=== PATIENT | male | born 1950 | race Caucasian/White ===

== ENCOUNTER 2021-12-06 12:27 | Inpatient (IN) | payer MEDICARE, OTHER ==
[2021-12-06 13:32] VITALS: BMI 27.3
[2021-12-06 15:27] LABS: BASO % 0.1 % (0-2.0); EOS % 0.1 % (0-4.5); HEMATOCRIT 40.6 % (35.4-49); MCH 28.4 pg (25.7-33.7); MEAN CELL VOLUME 88.8 fl (80-96); MEAN PLT VOLUME 8.3 fl (7.5-11.1); MONO % 6.8 % (3.8-10.2); PLATELET COUNT 404 10^3/uL (134-434); RBC 4.56 M/mm3 (4.00-5.60); RDW 15.7 % (11.9-15.9); WHITE BLOOD COUNT 20.1 K/mm3 (4.0-10.0)
[2021-12-06 15:37] LABS: INR 3.49 (0.83-1.09); PROTHROMBIN TIME (PATIENT) 40.6 SEC (9.7-13.0)
[2021-12-06 15:40] LABS: ACTIVATED PTT 39.1 SECONDS (25.2-36.5)
[2021-12-06 15:54] LABS: CHLORIDE 110 mmol/L (98-107); SODIUM 144 mmol/L (136-145)
[2021-12-06 15:58] LABS: ALBUMIN 2.2 g/dl (3.4-5.0); ANION GAP 8 MMOL/L (8-16); BLOOD UREA NITROGEN 28.5 mg/dL (7-18); CALCIUM 9.2 mg/dL (8.5-10.1); CO2 25 mmol/L (21-32); GLUCOSE,RANDOM 105 mg/dL (74-106)
[2021-12-06 16:00] LABS: SGOT/AST 23 U/L (15-37); SGPT/ALT 9 U/L (13-61)
[2021-12-06 16:02] LABS: CREATININE 0.9 mg/dL (0.55-1.3)
[2021-12-06 16:03] LABS: BILIRUBIN,TOTAL 1.4 mg/dL (0.2-1); TOT PROT 6.5 g/dl (6.4-8.2)
[2021-12-06 16:04] LABS: ALK PHOS 154 U/L (45-117)
[2021-12-06] MEDS ORDERED: ACETAMINOPHEN INJECTION 100 ML IVPB ONE (17:34)
[2021-12-06] MEDS ORDERED: PIPERACILLIN/TAZOB 4.5 GM 4.5 GM/100 ML BAG IVPB ONE (17:34)
[2021-12-06] MEDS ORDERED: VANCOMYCIN 1 GRAM (PRE-DOCKED) 1,000 MG/250 ML BAG IVPB ONE (17:34)
[2021-12-06] MEDS ORDERED: PIPERACILLIN/TAZOB 4.5 GM 4.5 GM in DEXTROSE 5%-WATER 100 ML IVPB ONE (17:37)
[2021-12-06] MEDS ORDERED: VANCOMYCIN 1,000 MG in DEXTROSE 5%-WATER - 250 ML IVPB ONE (17:37)
[2021-12-06] MEDS ORDERED: DEXAMETHASONE SOD PHOSPHATE 10 MG/1 ML VIAL IVPUSH ONE (17:40)
[2021-12-06 17:41] LABS: ANISOCYTOSIS 2+; MACROCYTOSIS 0; OVALOCYTE 1+; PLATELET ESTIMATE NORMAL; TARGET CELLS 1+
[2021-12-06] MEDS ORDERED: ACETAMINOPHEN 1000 MG/100 ML BAG IVPB ONE (17:55)
[2021-12-06 19:58] LABS: ALLENS TEST POSITIVE; ARTERIAL BLD GAS O2 SATURATION 90.1 % (95-98); ARTERIAL BLOOD GAS BASE EXCESS 1.2 mmol/L (-2-2); ARTERIAL BLOOD GAS pH 7.448 (7.350-7.450)
[2021-12-06 20:01] LABS: EPI CELLS 9 /uL (0-25.1); HYALINE CASTS 6 /uL (0-3.1); PH,URINE 5.5 (5.0-8.0); URINE APPEARANCE CLOUDY; URINE BILIRUBIN 2+ (NEGATIVE); URINE COLOR DK YELLOW; URINE GLUCOSE (UA) NEGATIVE (NEGATIVE); URINE KETONE NEGATIVE (NEGATIVE); URINE LEUK ESTERASE 1+ (NEGATIVE); URINE NITRITE POSITIVE (NEGATIVE); URINE PROTEIN TRACE (NEGATIVE); URINE WBC 37 /uL (0-25.8)
[2021-12-06 22:22] LABS: URINE BACTERIA 2 /uL (0-1359); URINE RBC 74 /uL (0-23.9)
[2021-12-07] MEDS ORDERED: PIPERACILLIN/TAZOB 4.5 GM 4.5 GM in DEXTROSE 5%-WATER 100 ML IVPB SCH ×2 (09:00→09:30)
[2021-12-07 09:09] LABS: HEMATOCRIT 39.2 % (35.4-49); HEMOGLOBIN 12.7 GM/dL (11.7-16.9); MCH 28.6 pg (25.7-33.7); MCHC 32.3 g/dl (32.0-35.9); MEAN CELL VOLUME 88.7 fl (80-96); MEAN PLT VOLUME 8.9 fl (7.5-11.1); PLATELET COUNT 428 10^3/uL (134-434); RBC 4.42 M/mm3 (4.00-5.60); RDW 15.6 % (11.9-15.9); WHITE BLOOD COUNT 26.8 K/mm3 (4.0-10.0)
[2021-12-07] MEDS ORDERED: VANCOMYCIN/WATER BAGS 1,250 MG/250 ML BAG IVPB SCH ×2 (09:30→10:00)
[2021-12-07 09:53] LABS: CHLORIDE 107 mmol/L (98-107); SODIUM 141 mmol/L (136-145)
[2021-12-07 09:54] LABS: ANISOCYTOSIS 0; HELMET CELLS 0; HOWELL-JOLLY BODIES 0; MACROCYTOSIS 0; OVALOCYTE 0; PLATELET ESTIMATE NORMAL; ROULEAU 0; SICKELED CELLS 0; TARGET CELLS 0; TEAR DROP CELLS 0; TOXIC GRANULATION 0
[2021-12-07 10:01] LABS: CREATININE 0.9 mg/dL (0.55-1.3); SGPT/ALT 11 U/L (13-61)
[2021-12-07 10:03] LABS: BILIRUBIN,TOTAL 1.3 mg/dL (0.2-1)
[2021-12-07 10:04] LABS: CALCIUM 9.4 mg/dL (8.5-10.1); GLUCOSE,RANDOM 157 mg/dL (74-106)
[2021-12-07 10:05] LABS: ALBUMIN 2.1 g/dl (3.4-5.0); BLOOD UREA NITROGEN 36.7 mg/dL (7-18); MAGNESIUM 2.9 mg/dL (1.8-2.4)
[2021-12-07 10:08] LABS: ANION GAP 10 MMOL/L (8-16); CO2 24 mmol/L (21-32); PHOSPHOROUS 4.1 mg/dL (2.5-4.9); SGOT/AST 24 U/L (15-37); TOT PROT 6.6 g/dl (6.4-8.2)
[2021-12-07 10:09] LABS: ALK PHOS 176 U/L (45-117)
[2021-12-07] MEDS ORDERED: PIPERACILLIN/TAZOB 4.5 GM 4.5 GM/100 ML BAG IVPB ONE (12:23)
[2021-12-07] MEDS ORDERED: PIPERACILLIN/TAZOB 3.375 GM 3.375 GM/50 ML BAG IVPB ONE (19:28)
[2021-12-07] MEDS ORDERED: D5-1/2NS+20 MEQ KCL - 20 MEQ/1,000 ML INFUS.BAG IV SCH (19:45)
[2021-12-07] MEDS: PIPERACILLIN/TAZOB 3.375 GM 3.375 GM in DEXTROSE 5%-WATER - 50 ML IVPB SCH (20:09)
[2021-12-07] MEDS: D5-1/2NS+20 MEQ KCL - 20 MEQ/1,000 ML INFUS.BAG IV SCH (20:09)
[2021-12-07] MEDS: ALBUTEROL SO4 HFA INHALER IH SCH (20:10)
[2021-12-08] MEDS ORDERED: PIPERACILLIN/TAZOBACTAM 3.375 GM VIAL IVPB ONE ×3 (00:06→17:26)
[2021-12-08] MEDS ORDERED: DEXTROSE 5%-WATER - 50 ML IVPB ONE ×3 (00:06→17:27)
[2021-12-08] MEDS: methylPREDNISolone NA SUCC 40 MG/1 ML VIAL IVPUSH SCH ×3 (00:11→21:22)
[2021-12-08] MEDS: PIPERACILLIN/TAZOB 3.375 GM 3.375 GM in DEXTROSE 5%-WATER - 50 ML IVPB SCH ×3 (01:30→17:40)
[2021-12-08] MEDS: ALBUTEROL SO4 HFA INHALER IH SCH ×2 (03:35→21:23)
[2021-12-08 08:48] LABS: HEMATOCRIT 36.7 % (35.4-49); HEMOGLOBIN 11.7 GM/dL (11.7-16.9); MCH 28.2 pg (25.7-33.7); MCHC 31.9 g/dl (32.0-35.9); MEAN CELL VOLUME 88.4 fl (80-96); MEAN PLT VOLUME 8.9 fl (7.5-11.1); PLATELET COUNT 420 10^3/uL (134-434); RBC 4.15 M/mm3 (4.00-5.60); RDW 15.9 % (11.9-15.9); WHITE BLOOD COUNT 25.6 K/mm3 (4.0-10.0)
[2021-12-08 09:15] LABS: BLOOD UREA NITROGEN 37.7 mg/dL (7-18); CALCIUM 8.9 mg/dL (8.5-10.1)
[2021-12-08 09:19] LABS: CREATININE 1.1 mg/dL (0.55-1.3)
[2021-12-08 09:20] LABS: BILIRUBIN,TOTAL 1.1 mg/dL (0.2-1); TOT PROT 6.4 g/dl (6.4-8.2)
[2021-12-08 11:00] LABS: ANISOCYTOSIS 1+; MACROCYTOSIS 2+; OVALOCYTE 1+; PLATELET ESTIMATE NORMAL; TOXIC GRANULATION 2+
[2021-12-08] MEDS: PANTOPRAZOLE SODIUM 40 MG VIAL IVPUSH SCH (14:20)
[2021-12-08] MEDS: ENOXAPARIN NA (PORCINE) 40 MG/0.4 ML DISP.SYRIN SQ SCH (14:21)
[2021-12-08] MEDS: D5-1/2NS+20 MEQ KCL - 20 MEQ/1,000 ML INFUS.BAG IV SCH (14:59)
[2021-12-09] MEDS ORDERED: PIPERACILLIN/TAZOBACTAM 3.375 GM VIAL IVPB ONE ×3 (03:44→17:33)
[2021-12-09] MEDS ORDERED: DEXTROSE 5%-WATER - 50 ML IVPB ONE ×3 (03:45→17:33)
[2021-12-09] MEDS: ALBUTEROL SO4 HFA INHALER IH SCH (03:55)
[2021-12-09] MEDS: PIPERACILLIN/TAZOB 3.375 GM 3.375 GM in DEXTROSE 5%-WATER - 50 ML IVPB SCH ×3 (03:55→17:50)
[2021-12-09 07:24] LABS: BASO % 0.1 % (0-2.0); HEMATOCRIT 33.4 % (35.4-49); HEMOGLOBIN 10.8 GM/dL (11.7-16.9); LYMPH % 9.5 % (8-40); MCH 28.6 pg (25.7-33.7); MCHC 32.3 g/dl (32.0-35.9); MEAN CELL VOLUME 88.6 fl (80-96); MEAN PLT VOLUME 9.1 fl (7.5-11.1); MONO % 3.7 % (3.8-10.2); NEUT % 86.7 % (42.8-82.8); PLATELET COUNT 410 10^3/uL (134-434); RBC 3.77 M/mm3 (4.00-5.60); RDW 15.7 % (11.9-15.9); WHITE BLOOD COUNT 19.5 K/mm3 (4.0-10.0)
[2021-12-09 07:42] LABS: BLOOD UREA NITROGEN 39.5 mg/dL (7-18); CALCIUM 8.6 mg/dL (8.5-10.1)
[2021-12-09 07:45] LABS: BILIRUBIN,TOTAL 1.4 mg/dL (0.2-1); CREATININE 1.2 mg/dL (0.55-1.3); TOT PROT 6.1 g/dl (6.4-8.2)
[2021-12-09] MEDS: D5-1/2NS+20 MEQ KCL - 20 MEQ/1,000 ML INFUS.BAG IV SCH (08:47)
[2021-12-09] MEDS: methylPREDNISolone NA SUCC 40 MG/1 ML VIAL IVPUSH SCH (10:49)
[2021-12-09] MEDS: PANTOPRAZOLE SODIUM 40 MG VIAL IVPUSH SCH (10:49)
[2021-12-09] MEDS: ENOXAPARIN NA (PORCINE) 40 MG/0.4 ML DISP.SYRIN SQ SCH (10:49)
[2021-12-09] MEDS: ACETAMINOPHEN 1000 MG/100 ML BAG IVPB PRN ×2 (10:49→17:58)
[2021-12-09] MEDS: AMINO ACIDS 4.25%/D5W 2,000 ML IV SCH (13:44)
[2021-12-10] MEDS ORDERED: PIPERACILLIN/TAZOBACTAM 3.375 GM VIAL IVPB ONE ×3 (01:30→16:54)
[2021-12-10] MEDS ORDERED: DEXTROSE 5%-WATER - 50 ML IVPB ONE ×3 (01:30→16:54)
[2021-12-10] MEDS: PIPERACILLIN/TAZOB 3.375 GM 3.375 GM in DEXTROSE 5%-WATER - 50 ML IVPB SCH ×3 (01:48→18:09)
[2021-12-10] MEDS: ALBUTEROL SO4 HFA INHALER IH SCH ×3 (07:21→22:15)
[2021-12-10 07:45] LABS: HEMATOCRIT 32.5 % (35.4-49); HEMOGLOBIN 10.5 GM/dL (11.7-16.9); MCH 28.6 pg (25.7-33.7); MCHC 32.4 g/dl (32.0-35.9); MEAN CELL VOLUME 88.3 fl (80-96); PLATELET COUNT 365 10^3/uL (134-434); RBC 3.68 M/mm3 (4.00-5.60); RDW 15.9 % (11.9-15.9); WHITE BLOOD COUNT 20.7 K/mm3 (4.0-10.0)
[2021-12-10 08:34] LABS: BLOOD UREA NITROGEN 41.5 mg/dL (7-18); CALCIUM 9.1 mg/dL (8.5-10.1)
[2021-12-10 08:36] LABS: CREATININE 0.8 mg/dL (0.55-1.3)
[2021-12-10 08:37] LABS: BILIRUBIN,TOTAL 1.5 mg/dL (0.2-1)
[2021-12-10 10:17] LABS: ANISOCYTOSIS 0; HELMET CELLS 0; HOWELL-JOLLY BODIES 0; MACROCYTOSIS 0; OVALOCYTE 0; PLATELET ESTIMATE NORMAL; ROULEAU 0; SICKELED CELLS 0; TARGET CELLS 0; TEAR DROP CELLS 0; TOXIC GRANULATION 0
[2021-12-10] MEDS: ENOXAPARIN NA (PORCINE) 40 MG/0.4 ML DISP.SYRIN SQ SCH (11:36)
[2021-12-10] MEDS: PANTOPRAZOLE SODIUM 40 MG VIAL IVPUSH SCH (11:37)
[2021-12-10] MEDS: AMINO ACIDS 4.25%/D5W 2,000 ML IV SCH (14:38)
[2021-12-10] MEDS: ALBUTEROL SO4 2.5/IPRATROPIUM 0.5 INH SOL 3 ML VIAL.NEB. NEB SCH ×2 (15:48→20:10)
[2021-12-10] MEDS ORDERED: ACETAMINOPHEN 1000 MG/100 ML BAG IVPB PRN (21:35)
[2021-12-11] MEDS: PIPERACILLIN/TAZOB 3.375 GM 3.375 GM in DEXTROSE 5%-WATER - 50 ML IVPB SCH ×3 (03:00→18:02)
[2021-12-11] MEDS ORDERED: PIPERACILLIN/TAZOBACTAM 3.375 GM VIAL IVPB ONE ×3 (03:12→17:11)
[2021-12-11] MEDS ORDERED: DEXTROSE 5%-WATER - 50 ML IVPB ONE ×3 (03:13→17:11)
[2021-12-11] MEDS: ALBUTEROL SO4 2.5/IPRATROPIUM 0.5 INH SOL 3 ML VIAL.NEB. NEB SCH ×4 (08:01→20:31)
[2021-12-11 08:07] LABS: BASO % 0.2 % (0-2.0); EOS % 0.2 % (0-4.5); HEMATOCRIT 31.1 % (35.4-49); HEMOGLOBIN 10.3 GM/dL (11.7-16.9); LYMPH % 10.6 % (8-40); MCH 29.2 pg (25.7-33.7); MEAN CELL VOLUME 88.5 fl (80-96); MEAN PLT VOLUME 8.8 fl (7.5-11.1); MONO % 4.2 % (3.8-10.2); NEUT % 84.8 % (42.8-82.8); PLATELET COUNT 340 10^3/uL (134-434); RBC 3.51 M/mm3 (4.00-5.60); RDW 15.8 % (11.9-15.9); WHITE BLOOD COUNT 16.3 K/mm3 (4.0-10.0)
[2021-12-11 08:35] LABS: ALBUMIN 1.9 g/dl (3.4-5.0); BLOOD UREA NITROGEN 40.3 mg/dL (7-18); CALCIUM 8.4 mg/dL (8.5-10.1)
[2021-12-11 08:38] LABS: CREATININE 0.8 mg/dL (0.55-1.3)
[2021-12-11 08:40] LABS: BILIRUBIN,TOTAL 1.4 mg/dL (0.2-1); TOT PROT 5.5 g/dl (6.4-8.2)
[2021-12-11] MEDS: ENOXAPARIN NA (PORCINE) 40 MG/0.4 ML DISP.SYRIN SQ SCH (09:12)
[2021-12-11] MEDS: ALBUTEROL SO4 HFA INHALER IH SCH ×3 (09:12→18:39)
[2021-12-11] MEDS: PANTOPRAZOLE SODIUM 40 MG VIAL IVPUSH SCH (09:12)
[2021-12-11] MEDS: AMINO ACIDS 4.25%/D5W 2,000 ML IV SCH (18:39)
[2021-12-12] MEDS: PIPERACILLIN/TAZOB 3.375 GM 3.375 GM in DEXTROSE 5%-WATER - 50 ML IVPB SCH ×3 (03:00→17:16)
[2021-12-12] MEDS ORDERED: PIPERACILLIN/TAZOBACTAM 3.375 GM VIAL IVPB ONE ×3 (03:05→17:03)
[2021-12-12] MEDS ORDERED: DEXTROSE 5%-WATER - 50 ML IVPB ONE ×3 (03:06→17:03)
[2021-12-12] MEDS: ALBUTEROL SO4 2.5/IPRATROPIUM 0.5 INH SOL 3 ML VIAL.NEB. NEB SCH ×4 (08:13→20:47)
[2021-12-12] MEDS: ALBUTEROL SO4 HFA INHALER IH SCH ×2 (10:25→15:09)
[2021-12-12] MEDS: ENOXAPARIN NA (PORCINE) 40 MG/0.4 ML DISP.SYRIN SQ SCH (10:25)
[2021-12-12] MEDS: PANTOPRAZOLE SODIUM 40 MG VIAL IVPUSH SCH (10:26)
[2021-12-12] MEDS: AMINO ACIDS 4.25%/D5W 2,000 ML IV SCH (15:09)
[2021-12-13] MEDS ORDERED: DEXTROSE 5%-WATER - 50 ML IVPB ONE ×3 (01:45→16:51)
[2021-12-13] MEDS ORDERED: PIPERACILLIN/TAZOBACTAM 3.375 GM VIAL IVPB ONE ×3 (01:45→16:51)
[2021-12-13] MEDS: PIPERACILLIN/TAZOB 3.375 GM 3.375 GM in DEXTROSE 5%-WATER - 50 ML IVPB SCH ×3 (02:08→17:27)
[2021-12-13] MEDS: ALBUTEROL SO4 HFA INHALER IH SCH ×3 (02:09→14:27)
[2021-12-13] MEDS: ALBUTEROL SO4 2.5/IPRATROPIUM 0.5 INH SOL 3 ML VIAL.NEB. NEB SCH ×4 (08:05→20:40)
[2021-12-13] MEDS: ENOXAPARIN NA (PORCINE) 40 MG/0.4 ML DISP.SYRIN SQ SCH (09:49)
[2021-12-13] MEDS: PANTOPRAZOLE SODIUM 40 MG VIAL IVPUSH SCH (09:50)
[2021-12-13] MEDS: AMINO ACIDS 4.25%/D5W 2,000 ML IV SCH (14:27)
[2021-12-13] MEDS: ACETAMINOPHEN 1000 MG/100 ML BAG IVPB PRN (18:43)
[2021-12-14] MEDS ORDERED: PIPERACILLIN/TAZOBACTAM 3.375 GM VIAL IVPB ONE ×3 (02:16→16:42)
[2021-12-14] MEDS ORDERED: DEXTROSE 5%-WATER - 50 ML IVPB ONE ×3 (02:16→16:42)
[2021-12-14] MEDS: PIPERACILLIN/TAZOB 3.375 GM 3.375 GM in DEXTROSE 5%-WATER - 50 ML IVPB SCH ×3 (02:38→17:02)
[2021-12-14 07:43] LABS: BASO % 0.4 % (0-2.0); EOS % 2.7 % (0-4.5); HEMATOCRIT 29.7 % (35.4-49); HEMOGLOBIN 10.1 GM/dL (11.7-16.9); MCH 29.6 pg (25.7-33.7); MEAN CELL VOLUME 86.9 fl (80-96); MEAN PLT VOLUME 8.9 fl (7.5-11.1); MONO % 3.8 % (3.8-10.2); NEUT % 80.1 % (42.8-82.8); PLATELET COUNT 359 10^3/uL (134-434); RBC 3.42 M/mm3 (4.00-5.60); RDW 15.7 % (11.9-15.9); WHITE BLOOD COUNT 9.6 K/mm3 (4.0-10.0)
[2021-12-14 08:01] LABS: ALBUMIN 1.7 g/dl (3.4-5.0)
[2021-12-14 08:02] LABS: BLOOD UREA NITROGEN 27.8 mg/dL (7-18)
[2021-12-14] MEDS: ALBUTEROL SO4 2.5/IPRATROPIUM 0.5 INH SOL 3 ML VIAL.NEB. NEB SCH ×4 (08:03→20:30)
[2021-12-14 08:04] LABS: CREATININE 0.6 mg/dL (0.55-1.3)
[2021-12-14 08:06] LABS: BILIRUBIN,TOTAL 0.8 mg/dL (0.2-1); TOT PROT 5.6 g/dl (6.4-8.2)
[2021-12-14] MEDS: ALBUTEROL SO4 HFA INHALER IH SCH ×3 (09:03→19:25)
[2021-12-14] MEDS: ENOXAPARIN NA (PORCINE) 40 MG/0.4 ML DISP.SYRIN SQ SCH (09:03)
[2021-12-14] MEDS: PANTOPRAZOLE SODIUM 40 MG VIAL IVPUSH SCH (09:04)
[2021-12-14] MEDS: AMINO ACIDS 4.25%/D5W 2,000 ML IV SCH (15:51)
[2021-12-14] MEDS: ACETAMINOPHEN 1000 MG/100 ML BAG IVPB PRN (18:21)
[2021-12-14] MEDS ORDERED: KCL 10 MEQ IVPB 10 MEQ/100 ML INFUS.BAG IVPB SCH (19:00)
[2021-12-15] MEDS: ALBUTEROL SO4 HFA INHALER IH SCH ×4 (01:45→19:40)
[2021-12-15] MEDS: ALBUTEROL SO4 2.5/IPRATROPIUM 0.5 INH SOL 3 ML VIAL.NEB. NEB SCH ×2 (07:56→11:07)
[2021-12-15] MEDS: ENOXAPARIN NA (PORCINE) 40 MG/0.4 ML DISP.SYRIN SQ SCH (10:11)
[2021-12-15] MEDS: PANTOPRAZOLE SODIUM 40 MG VIAL IVPUSH SCH (10:12)
[2021-12-15] MEDS: AMINO ACIDS 4.25%/D5W 2,000 ML IV SCH (14:32)
[2021-12-16] MEDS ORDERED: PIPERACILLIN/TAZOBACTAM 3.375 GM VIAL IVPB ONE ×3 (00:50→16:15)
[2021-12-16] MEDS ORDERED: DEXTROSE 5%-WATER - 50 ML IVPB ONE ×3 (00:50→16:16)
[2021-12-16] MEDS: ACETAMINOPHEN 1000 MG/100 ML BAG IVPB PRN (01:24)
[2021-12-16] MEDS: PIPERACILLIN/TAZOB 3.375 GM 3.375 GM in DEXTROSE 5%-WATER - 50 ML IVPB SCH ×3 (01:59→17:27)
[2021-12-16] MEDS: ALBUTEROL SO4 HFA INHALER IH SCH ×5 (01:59→13:26)
[2021-12-16 08:43] LABS: BASO % 0.7 % (0-2.0); EOS % 2.6 % (0-4.5); HEMATOCRIT 27.4 % (35.4-49); HEMOGLOBIN 9.4 GM/dL (11.7-16.9); LYMPH % 17.2 % (8-40); MCH 29.7 pg (25.7-33.7); MCHC 34.4 g/dl (32.0-35.9); MEAN CELL VOLUME 86.5 fl (80-96); MEAN PLT VOLUME 8.7 fl (7.5-11.1); MONO % 5.2 % (3.8-10.2); NEUT % 74.3 % (42.8-82.8); PLATELET COUNT 394 10^3/uL (134-434); RBC 3.16 M/mm3 (4.00-5.60); RDW 15.6 % (11.9-15.9); WHITE BLOOD COUNT 8.4 K/mm3 (4.0-10.0)
[2021-12-16 09:25] LABS: CALCIUM 8.2 mg/dL (8.5-10.1)
[2021-12-16 09:26] LABS: ALBUMIN 1.7 g/dl (3.4-5.0); BLOOD UREA NITROGEN 22.6 mg/dL (7-18)
[2021-12-16 09:29] LABS: CREATININE 0.6 mg/dL (0.55-1.3)
[2021-12-16 09:30] LABS: BILIRUBIN,TOTAL 0.6 mg/dL (0.2-1); TOT PROT 5.7 g/dl (6.4-8.2)
[2021-12-16] MEDS: PANTOPRAZOLE SODIUM 40 MG VIAL IVPUSH SCH (10:03)
[2021-12-16] MEDS ORDERED: AMINO ACIDS 4.25%/D5W 2,000 ML IV SCH (16:00)
[2021-12-17] MEDS: ALBUTEROL SO4 HFA INHALER IH SCH ×5 (00:03→20:50)
[2021-12-17] MEDS: PIPERACILLIN/TAZOB 3.375 GM 3.375 GM in DEXTROSE 5%-WATER - 50 ML IVPB SCH ×3 (02:08→17:33)
[2021-12-17] MEDS ORDERED: PIPERACILLIN/TAZOBACTAM 3.375 GM VIAL IVPB ONE ×3 (03:20→17:30)
[2021-12-17] MEDS ORDERED: DEXTROSE 5%-WATER - 50 ML IVPB ONE ×3 (03:20→17:30)
[2021-12-17] MEDS: PANTOPRAZOLE SODIUM 40 MG VIAL IVPUSH SCH (10:09)
[2021-12-17] MEDS ORDERED: ACETAMINOPHEN 1000 MG/100 ML BAG IVPB PRN (15:09)
[2021-12-17] MEDS: AMINO ACIDS 4.25%/D5W 2,000 ML IV SCH (17:16)
[2021-12-18] MEDS ORDERED: PIPERACILLIN/TAZOBACTAM 3.375 GM VIAL IVPB ONE ×3 (01:12→17:05)
[2021-12-18] MEDS ORDERED: DEXTROSE 5%-WATER - 50 ML IVPB ONE ×3 (01:13→17:05)
[2021-12-18] MEDS: PIPERACILLIN/TAZOB 3.375 GM 3.375 GM in DEXTROSE 5%-WATER - 50 ML IVPB SCH ×3 (02:26→17:25)
[2021-12-18] MEDS: ALBUTEROL SO4 HFA INHALER IH SCH ×4 (02:31→19:50)
[2021-12-18 08:59] LABS: BASO % 0.6 % (0-2.0); EOS % 1.6 % (0-4.5); HEMATOCRIT 30.1 % (35.4-49); LYMPH % 16.3 % (8-40); MCH 28.8 pg (25.7-33.7); MCHC 33.1 g/dl (32.0-35.9); MEAN CELL VOLUME 87.2 fl (80-96); MEAN PLT VOLUME 8.1 fl (7.5-11.1); NEUT % 74.5 % (42.8-82.8); PLATELET COUNT 493 10^3/uL (134-434); RBC 3.46 M/mm3 (4.00-5.60); WHITE BLOOD COUNT 10.1 K/mm3 (4.0-10.0)
[2021-12-18 09:32] LABS: ALBUMIN 1.9 g/dl (3.4-5.0); BLOOD UREA NITROGEN 19.5 mg/dL (7-18)
[2021-12-18 09:33] LABS: CALCIUM 8.8 mg/dL (8.5-10.1)
[2021-12-18 09:34] LABS: CREATININE 0.5 mg/dL (0.55-1.3)
[2021-12-18 09:36] LABS: BILIRUBIN,TOTAL 0.5 mg/dL (0.2-1); TOT PROT 6.1 g/dl (6.4-8.2)
[2021-12-18] MEDS: PANTOPRAZOLE SODIUM 40 MG VIAL IVPUSH SCH (10:15)
[2021-12-18] MEDS: KCL 10 MEQ IVPB 10 MEQ/100 ML INFUS.BAG IVPB SCH ×3 (14:00→16:28)
[2021-12-18] MEDS: AMINO ACIDS 4.25%/D5W 2,000 ML IV SCH ×2 (16:00→18:53)
[2021-12-19] MEDS: ALBUTEROL SO4 HFA INHALER IH SCH ×4 (01:03→21:37)
[2021-12-19] MEDS ORDERED: DEXTROSE 5%-WATER - 50 ML IVPB ONE ×3 (01:04→17:21)
[2021-12-19] MEDS ORDERED: PIPERACILLIN/TAZOBACTAM 3.375 GM VIAL IVPB ONE ×3 (01:04→17:20)
[2021-12-19] MEDS: PIPERACILLIN/TAZOB 3.375 GM 3.375 GM in DEXTROSE 5%-WATER - 50 ML IVPB SCH ×3 (01:15→17:24)
[2021-12-19] MEDS: PANTOPRAZOLE SODIUM 40 MG VIAL IVPUSH SCH (10:00)
[2021-12-19] MEDS: AMINO ACIDS 4.25%/D5W 2,000 ML IV SCH ×2 (17:30→17:31)
[2021-12-20] MEDS: ALBUTEROL SO4 HFA INHALER IH SCH ×4 (02:52→20:28)
[2021-12-20] MEDS ORDERED: PIPERACILLIN/TAZOBACTAM 3.375 GM VIAL IVPB ONE ×3 (02:53→17:05)
[2021-12-20] MEDS ORDERED: DEXTROSE 5%-WATER - 50 ML IVPB ONE ×3 (02:53→17:05)
[2021-12-20] MEDS: PIPERACILLIN/TAZOB 3.375 GM 3.375 GM in DEXTROSE 5%-WATER - 50 ML IVPB SCH ×3 (02:56→17:29)
[2021-12-20] MEDS: PANTOPRAZOLE SODIUM 40 MG VIAL IVPUSH SCH (09:35)
[2021-12-20 13:33] LABS: BASO % 0.9 % (0-2.0); EOS % 1.3 % (0-4.5); HEMATOCRIT 27.6 % (35.4-49); HEMOGLOBIN 9.3 GM/dL (11.7-16.9); LYMPH % 21.9 % (8-40); MCH 29.1 pg (25.7-33.7); MCHC 33.8 g/dl (32.0-35.9); MEAN CELL VOLUME 86.1 fl (80-96); MEAN PLT VOLUME 7.3 fl (7.5-11.1); MONO % 10.2 % (3.8-10.2); NEUT % 65.7 % (42.8-82.8); PLATELET COUNT 469 10^3/uL (134-434); WHITE BLOOD COUNT 6.5 K/mm3 (4.0-10.0)
[2021-12-20 14:12] LABS: ALBUMIN 1.8 g/dl (3.4-5.0); BLOOD UREA NITROGEN 19.5 mg/dL (7-18); CALCIUM 8.6 mg/dL (8.5-10.1)
[2021-12-20 14:15] LABS: CREATININE 0.6 mg/dL (0.55-1.3)
[2021-12-20 14:17] LABS: BILIRUBIN,TOTAL 0.5 mg/dL (0.2-1); TOT PROT 5.8 g/dl (6.4-8.2)
[2021-12-20] MEDS: AMINO ACIDS 4.25%/D5W 2,000 ML IV SCH ×2 (17:28→18:46)
[2021-12-21] MEDS ORDERED: DEXTROSE 5%-WATER - 50 ML IVPB ONE ×3 (01:25→16:49)
[2021-12-21] MEDS ORDERED: PIPERACILLIN/TAZOBACTAM 3.375 GM VIAL IVPB ONE ×3 (01:25→16:49)
[2021-12-21] MEDS: ALBUTEROL SO4 HFA INHALER IH SCH ×4 (01:35→18:31)
[2021-12-21] MEDS: PIPERACILLIN/TAZOB 3.375 GM 3.375 GM in DEXTROSE 5%-WATER - 50 ML IVPB SCH ×4 (01:35→17:15)
[2021-12-21] MEDS ORDERED: ACETYLCYSTEINE 20% 200MG/ML 30 ML VIAL *FOR ORAL / INH USE ONLY NEB ONE (02:52)
[2021-12-21] MEDS ORDERED: ALBUTEROL SO4 0.042% IH SOL 1.25 MG/3 ML VIAL.NEB NEB ONE ×2 (02:52→03:53)
[2021-12-21 02:54] LABS: ARTERIAL BLD GAS O2 SATURATION 95.9 % (95-98); ARTERIAL BLOOD GAS BASE EXCESS -4.8 mmol/L (-2-2); ARTERIAL BLOOD GAS PO2 78.2 mmHg (80-100); ARTERIAL BLOOD GAS pH 7.417 (7.350-7.450)
[2021-12-21 02:55] LABS: ALLENS TEST POSITIVE
[2021-12-21 03:00] LABS: HEMATOCRIT 30.4 % (35.4-49); HEMOGLOBIN 10.4 GM/dL (11.7-16.9); MCH 29.4 pg (25.7-33.7); MCHC 34.2 g/dl (32.0-35.9); MEAN PLT VOLUME 7.2 fl (7.5-11.1); PLATELET COUNT 530 10^3/uL (134-434); RBC 3.53 M/mm3 (4.00-5.60); RDW 16.2 % (11.9-15.9); WHITE BLOOD COUNT 6.7 K/mm3 (4.0-10.0)
[2021-12-21 03:21] LABS: CALCIUM 8.8 mg/dL (8.5-10.1)
[2021-12-21 03:22] LABS: ALBUMIN 1.9 g/dl (3.4-5.0); BLOOD UREA NITROGEN 23.6 mg/dL (7-18)
[2021-12-21 03:26] LABS: BILIRUBIN,TOTAL 0.8 mg/dL (0.2-1); TOT PROT 6.5 g/dl (6.4-8.2)
[2021-12-21] MEDS ORDERED: ACETYLCYSTEINE 20% 200MG/ML 4 ML VIAL *FOR ORAL / INH USE ONLY NEB ONE (03:53)
[2021-12-21] MEDS ORDERED: ACETAMINOPHEN 1000 MG/100 ML BAG IVPB PRN ×2 (03:53→18:26)
[2021-12-21] MEDS ORDERED: SODIUM CHLORIDE 500 ML IV STA (04:09)
[2021-12-21 05:23] LABS: PROTHROMBIN TIME (PATIENT) 93.2 SEC (9.7-13.0)
[2021-12-21 05:57] LABS: INR 7.94 (0.83-1.09)
[2021-12-21] MEDS ORDERED: AMINO ACIDS 4.25%/D5W 1,000 ML IV SCH ×2 (06:30→16:00)
[2021-12-21] MEDS ORDERED: MUPIROCIN 2% TOPICAL OINTMENT FOR DECOLONIZATION NS SCH (10:00)
[2021-12-21] MEDS ORDERED: PANTOPRAZOLE SODIUM 40 MG VIAL IVPUSH SCH (10:00)
[2021-12-21] MEDS ORDERED: ENOXAPARIN NA (PORCINE) 40 MG/0.4 ML DISP.SYRIN SQ SCH (10:00)
[2021-12-21] MEDS ORDERED: PHYTONADIONE 10 MG/1 ML AMP IM SCH (10:45)
[2021-12-21] MEDS ORDERED: AMINO ACIDS 4.25%/D5W 2,000 ML IV SCH (16:00)
[2021-12-21] MEDS ORDERED: MULTIVIT INJ. ADULT COMBO WITH VIT K 1 COMBO 10 ML VIAL IV SCH (16:00)
[2021-12-21] MEDS ORDERED: ALBUTEROL SO4 HFA INHALER IH PRN (19:45)
[2021-12-21] MEDS ORDERED: CHLORHEXIDINE GLUCONATE 4% CLEANSER FOR DECOLONIZATION TP SCH (22:00)
[2021-12-22] MEDS ORDERED: PIPERACILLIN/TAZOBACTAM 3.375 GM VIAL IVPB ONE ×3 (02:20→17:06)
[2021-12-22] MEDS ORDERED: DEXTROSE 5%-WATER - 50 ML IVPB ONE ×3 (02:20→17:06)
[2021-12-22] MEDS: PIPERACILLIN/TAZOB 3.375 GM 3.375 GM in DEXTROSE 5%-WATER - 50 ML IVPB SCH ×3 (02:23→17:43)
[2021-12-22 08:24] LABS: INR 1.36 (0.83-1.09); PROTHROMBIN TIME (PATIENT) 15.7 SEC (9.7-13.0)
[2021-12-22 08:30] LABS: BASO % 0.6 % (0-2.0); EOS % 1.3 % (0-4.5); HEMATOCRIT 25.6 % (35.4-49); HEMOGLOBIN 8.9 GM/dL (11.7-16.9); LYMPH % 22.3 % (8-40); MCH 29.7 pg (25.7-33.7); MCHC 34.6 g/dl (32.0-35.9); MEAN CELL VOLUME 85.9 fl (80-96); MEAN PLT VOLUME 7.3 fl (7.5-11.1); MONO % 7.9 % (3.8-10.2); NEUT % 67.9 % (42.8-82.8); PLATELET COUNT 460 10^3/uL (134-434); RBC 2.98 M/mm3 (4.00-5.60); RDW 16.2 % (11.9-15.9)
[2021-12-22 08:49] LABS: CALCIUM 8.9 mg/dL (8.5-10.1)
[2021-12-22 08:50] LABS: MAGNESIUM 1.9 mg/dL (1.8-2.4)
[2021-12-22 08:51] LABS: ALBUMIN 1.9 g/dl (3.4-5.0)
[2021-12-22 08:52] LABS: BLOOD UREA NITROGEN 21.2 mg/dL (7-18)
[2021-12-22 08:53] LABS: CREATININE 0.6 mg/dL (0.55-1.3)
[2021-12-22 08:54] LABS: PHOSPHOROUS 2.2 mg/dL (2.5-4.9); TOT PROT 5.9 g/dl (6.4-8.2)
[2021-12-22 08:56] LABS: BILIRUBIN,TOTAL 0.6 mg/dL (0.2-1)
[2021-12-22] MEDS: PANTOPRAZOLE SODIUM 40 MG VIAL IVPUSH SCH (09:36)
[2021-12-22] MEDS ORDERED: PHYTONADIONE 10 MG/1 ML AMP IM SCH (10:00)
[2021-12-22] MEDS ORDERED: PIPERACILLIN/TAZOB 3.375 GM 3.375 GM in DEXTROSE 5%-WATER - 50 ML IVPB SCH (10:00)
[2021-12-22] MEDS: KCL 10 MEQ IVPB 10 MEQ/100 ML INFUS.BAG IVPB SCH ×3 (10:23→12:29)
[2021-12-22] MEDS ORDERED: ACETAMINOPHEN 1000 MG/100 ML BAG IVPB PRN (16:00)
[2021-12-22] MEDS ORDERED: AMINO ACIDS 4.25%/D5W 2,000 ML IV SCH (16:00)
[2021-12-22] MEDS ORDERED: MULTIVIT INJ. ADULT COMBO WITH VIT K 1 COMBO 10 ML VIAL IV SCH (16:00)
[2021-12-23] MEDS ORDERED: PIPERACILLIN/TAZOBACTAM 3.375 GM VIAL IVPB ONE ×3 (01:00→15:51)
[2021-12-23] MEDS ORDERED: DEXTROSE 5%-WATER - 50 ML IVPB ONE ×3 (01:00→15:52)
[2021-12-23] MEDS: PIPERACILLIN/TAZOB 3.375 GM 3.375 GM in DEXTROSE 5%-WATER - 50 ML IVPB SCH ×3 (01:52→17:13)
[2021-12-23 08:50] LABS: BASO % 0.8 % (0-2.0); EOS % 1.9 % (0-4.5); HEMATOCRIT 27.5 % (35.4-49); HEMOGLOBIN 9.1 GM/dL (11.7-16.9); LYMPH % 26.2 % (8-40); MCH 29.1 pg (25.7-33.7); MCHC 33.1 g/dl (32.0-35.9); MEAN CELL VOLUME 87.9 fl (80-96); MEAN PLT VOLUME 7.6 fl (7.5-11.1); MONO % 8.2 % (3.8-10.2); NEUT % 62.9 % (42.8-82.8); PLATELET COUNT 504 10^3/uL (134-434); RBC 3.13 M/mm3 (4.00-5.60); RDW 16.6 % (11.9-15.9); WHITE BLOOD COUNT 7.2 K/mm3 (4.0-10.0)
[2021-12-23 08:59] LABS: INR 1.29 (0.83-1.09); PROTHROMBIN TIME (PATIENT) 14.9 SEC (9.7-13.0)
[2021-12-23 09:16] LABS: CALCIUM 9.2 mg/dL (8.5-10.1)
[2021-12-23] MEDS: PANTOPRAZOLE SODIUM 40 MG VIAL IVPUSH SCH (09:16)
[2021-12-23 09:17] LABS: BLOOD UREA NITROGEN 21.6 mg/dL (7-18)
[2021-12-23 09:20] LABS: CREATININE 0.5 mg/dL (0.55-1.3)
[2021-12-23 09:22] LABS: BILIRUBIN,TOTAL 0.6 mg/dL (0.2-1); TOT PROT 6.2 g/dl (6.4-8.2)
[2021-12-23 10:12] LABS: MAGNESIUM 1.9 mg/dL (1.8-2.4)
[2021-12-23] MEDS: HEPARIN NA (PORCINE) 5,000 UNITS/ML 1ML VIAL SQ SCH ×2 (10:16→20:59)
[2021-12-23] MEDS: KCL 10 MEQ IVPB 10 MEQ/100 ML INFUS.BAG IVPB SCH ×3 (10:16→12:40)
[2021-12-23] MEDS: AMINO ACIDS 4.25%/D5W 2,000 ML IV SCH (17:31)
[2021-12-24] MEDS ORDERED: PIPERACILLIN/TAZOBACTAM 3.375 GM VIAL IVPB ONE ×3 (01:41→15:21)
[2021-12-24] MEDS ORDERED: DEXTROSE 5%-WATER - 50 ML IVPB ONE ×3 (01:41→15:21)
[2021-12-24] MEDS: PIPERACILLIN/TAZOB 3.375 GM 3.375 GM in DEXTROSE 5%-WATER - 50 ML IVPB SCH ×3 (02:12→17:09)
[2021-12-24 08:17] LABS: BASO % 0.4 % (0-2.0); EOS % 1.7 % (0-4.5); HEMATOCRIT 26.5 % (35.4-49); HEMOGLOBIN 8.9 GM/dL (11.7-16.9); MCH 29.2 pg (25.7-33.7); MCHC 33.5 g/dl (32.0-35.9); MEAN PLT VOLUME 7.6 fl (7.5-11.1); MONO % 8.2 % (3.8-10.2); NEUT % 65.7 % (42.8-82.8); PLATELET COUNT 538 10^3/uL (134-434); RBC 3.04 M/mm3 (4.00-5.60); RDW 16.1 % (11.9-15.9); WHITE BLOOD COUNT 7.3 K/mm3 (4.0-10.0)
[2021-12-24 08:26] LABS: CALCIUM 8.7 mg/dL (8.5-10.1)
[2021-12-24 08:27] LABS: BLOOD UREA NITROGEN 19.3 mg/dL (7-18)
[2021-12-24 08:30] LABS: CREATININE 0.5 mg/dL (0.55-1.3)
[2021-12-24 08:31] LABS: BILIRUBIN,TOTAL 0.8 mg/dL (0.2-1)
[2021-12-24 08:38] LABS: PROTHROMBIN TIME (PATIENT) 14.6 SEC (9.7-13.0)
[2021-12-24 08:39] LABS: INR 1.27 (0.83-1.09)
[2021-12-24] MEDS: HEPARIN NA (PORCINE) 5,000 UNITS/ML 1ML VIAL SQ SCH ×2 (09:23→21:09)
[2021-12-24] MEDS: PANTOPRAZOLE SODIUM 40 MG VIAL IVPUSH SCH (09:23)
[2021-12-24] MEDS: MULTIVIT INJ. ADULT COMBO WITH VIT K 1 COMBO 10 ML VIAL IV SCH (11:29)
[2021-12-24] MEDS ORDERED: MAGNESIUM SULF 50% (8.12 MEQ/2 ML-1 GM VIAL) IVPB ONE (11:32)
[2021-12-24] MEDS: KCL 10 MEQ IVPB 10 MEQ/100 ML INFUS.BAG IVPB SCH ×3 (11:46→13:35)
[2021-12-24] MEDS: AMINO ACIDS 4.25%/D5W 2,000 ML IV SCH (16:44)
[2021-12-24] MEDS ORDERED: AMINO ACIDS 4.25%/D5W 1,000 ML IV SCH (18:51)
[2021-12-25] MEDS: AMINO ACIDS 4.25%/D5W 1,000 ML IV SCH ×3 (00:39→18:00)
[2021-12-25] MEDS ORDERED: PIPERACILLIN/TAZOBACTAM 3.375 GM VIAL IVPB ONE ×2 (00:48→08:49)
[2021-12-25] MEDS ORDERED: DEXTROSE 5%-WATER - 50 ML IVPB ONE ×2 (00:48→08:49)
[2021-12-25] MEDS: PIPERACILLIN/TAZOB 3.375 GM 3.375 GM in DEXTROSE 5%-WATER - 50 ML IVPB SCH ×2 (01:16→09:48)
[2021-12-25 09:03] LABS: BLOOD UREA NITROGEN 20.1 mg/dL (7-18)
[2021-12-25 09:08] LABS: CREATININE 0.5 mg/dL (0.55-1.3)
[2021-12-25] MEDS: HEPARIN NA (PORCINE) 5,000 UNITS/ML 1ML VIAL SQ SCH ×2 (09:45→21:40)
[2021-12-25] MEDS: PANTOPRAZOLE SODIUM 40 MG VIAL IVPUSH SCH (09:47)
[2021-12-25] MEDS: KCL 10 MEQ IVPB 10 MEQ/100 ML INFUS.BAG IVPB SCH ×2 (11:34→12:48)
[2021-12-25] MEDS: MULTIVIT INJ. ADULT COMBO WITH VIT K 1 COMBO 10 ML VIAL IV SCH (12:50)
[2021-12-26] MEDS: AMINO ACIDS 4.25%/D5W 1,000 ML IV SCH ×2 (01:00→17:52)
[2021-12-26] MEDS: HEPARIN NA (PORCINE) 5,000 UNITS/ML 1ML VIAL SQ SCH ×2 (09:00→21:05)
[2021-12-26] MEDS: PANTOPRAZOLE SODIUM 40 MG VIAL IVPUSH SCH (09:01)
[2021-12-26] MEDS: MULTIVIT INJ. ADULT COMBO WITH VIT K 1 COMBO 10 ML VIAL IV SCH ×2 (09:01→17:52)
[2021-12-26] MEDS ORDERED: MIDAZOLAM HCL 2 MG/2 ML SINGLE DOSE VIAL IVPUSH ONE ×2 (13:55→14:05)
[2021-12-26] MEDS ORDERED: GLUCAGON 1 MG KIT IVPUSH ONE (14:00)
[2021-12-27] MEDS: AMINO ACIDS 4.25%/D5W 1,000 ML IV SCH ×2 (05:46→18:06)
[2021-12-27] MEDS ORDERED: ALBUTEROL SO4 2.5/IPRATROPIUM 0.5 INH SOL 3 ML VIAL.NEB. NEB ONE (06:46)
[2021-12-27 09:13] LABS: BASO % 0.6 % (0-2.0); EOS % 0.8 % (0-4.5); HEMATOCRIT 28.3 % (35.4-49); HEMOGLOBIN 9.8 GM/dL (11.7-16.9); MCHC 34.6 g/dl (32.0-35.9); MEAN CELL VOLUME 86.6 fl (80-96); MEAN PLT VOLUME 7.2 fl (7.5-11.1); MONO % 10.4 % (3.8-10.2); NEUT % 68.2 % (42.8-82.8); PLATELET COUNT 708 10^3/uL (134-434); RBC 3.27 M/mm3 (4.00-5.60); RDW 17.1 % (11.9-15.9); WHITE BLOOD COUNT 10.2 K/mm3 (4.0-10.0)
[2021-12-27 09:48] LABS: ALBUMIN 2.3 g/dl (3.4-5.0); CALCIUM 9.7 mg/dL (8.5-10.1); CREATININE 0.5 mg/dL (0.55-1.3)
[2021-12-27] MEDS: MULTIVIT INJ. ADULT COMBO WITH VIT K 1 COMBO 10 ML VIAL IV SCH (09:48)
[2021-12-27] MEDS: HEPARIN NA (PORCINE) 5,000 UNITS/ML 1ML VIAL SQ SCH ×2 (09:48→21:10)
[2021-12-27 09:49] LABS: TOT PROT 6.9 g/dl (6.4-8.2)
[2021-12-27] MEDS: PANTOPRAZOLE SODIUM 40 MG VIAL IVPUSH SCH (09:49)
[2021-12-27 09:52] LABS: BLOOD UREA NITROGEN 21.4 mg/dL (7-18)
[2021-12-27] MEDS ORDERED: ALBUTEROL SO4 2.5/IPRATROPIUM 0.5 INH SOL 3 ML VIAL.NEB. NEB PRN (10:30)
[2021-12-27] MEDS: ALBUTEROL SO4 2.5/IPRATROPIUM 0.5 INH SOL 3 ML VIAL.NEB. NEB SCH ×3 (12:00→20:06)
[2021-12-28] MEDS: ALBUTEROL SO4 2.5/IPRATROPIUM 0.5 INH SOL 3 ML VIAL.NEB. NEB SCH ×4 (07:52→20:10)
[2021-12-28] MEDS: PANTOPRAZOLE SODIUM 40 MG VIAL IVPUSH SCH (09:09)
[2021-12-28] MEDS: HEPARIN NA (PORCINE) 5,000 UNITS/ML 1ML VIAL SQ SCH ×2 (09:09→21:03)
[2021-12-28] MEDS: MULTIVIT INJ. ADULT COMBO WITH VIT K 1 COMBO 10 ML VIAL IV SCH (09:25)
[2021-12-28] MEDS ORDERED: ACETAMINOPHEN 650 MG/20.3 ML ORAL SOLUTION (CUPS) GT PRN (10:29)
[2021-12-28] MEDS ORDERED: FAMOTIDINE 40 MG/5 ML ORAL SUSPENSION PEG PRN (10:30)
[2021-12-28] MEDS ORDERED: PATIENT'S OWN MEDICATION (NON-FORMULARY) (Chlorpheniramine/Dextromethorp [Robitussin Long- PEG PRN (10:30)
[2021-12-28] MEDS ORDERED: ACETYLCYSTEINE 20% 200MG/ML 30 ML VIAL *FOR ORAL / INH USE ONLY NEB ONE (11:00)
[2021-12-28] MEDS ORDERED: ALBUTEROL SO4 0.083% IH SOL 2.5 MG/3 ML VIAL.NEB. NEB ONE (11:00)
[2021-12-28] MEDS ORDERED: ACETYLCYSTEINE 20% 200MG/ML 4 ML VIAL *FOR ORAL / INH USE ONLY NEB ONE (11:00)
[2021-12-28] MEDS: CARBIDOPA/LEVODOPA 25/100 TABLET (FP) GT SCH ×3 (15:16→21:03)
[2021-12-28] MEDS: amLODIPine BESYLATE 5 MG TABLET (FP) GT SCH (15:16)
[2021-12-28] MEDS: RIVASTIGMINE TARTRATE 1.5 MG CAPSULE PO SCH (16:26)
[2021-12-28] MEDS: AMINO ACIDS/PROTEIN HYDROLYS 30 ML LIQUID.PKT PO SCH (17:03)
[2021-12-28] MEDS ORDERED: ATORVASTATIN CA 20 MG TABLET (FP) PEG SCH (22:00)
[2021-12-29] MEDS: RIVASTIGMINE TARTRATE 1.5 MG CAPSULE PO SCH ×2 (06:03→16:49)
[2021-12-29] MEDS: ALBUTEROL SO4 2.5/IPRATROPIUM 0.5 INH SOL 3 ML VIAL.NEB. NEB SCH ×3 (08:03→16:14)
[2021-12-29] MEDS: AMINO ACIDS/PROTEIN HYDROLYS 30 ML LIQUID.PKT PO SCH ×2 (08:42→16:49)
[2021-12-29] MEDS ORDERED: CLOPIDOGREL BISULFATE 75 MG TABLET (FP) GT SCH (10:00)
[2021-12-29] MEDS: PANTOPRAZOLE SODIUM 40 MG VIAL IVPUSH SCH (10:09)
[2021-12-29] MEDS: CARBIDOPA/LEVODOPA 25/100 TABLET (FP) GT SCH ×3 (10:09→17:38)
[2021-12-29] MEDS: HEPARIN NA (PORCINE) 5,000 UNITS/ML 1ML VIAL SQ SCH (10:09)
[2021-12-29] MEDS: amLODIPine BESYLATE 5 MG TABLET (FP) GT SCH (10:10)
[2021-12-29] MEDS: MULTIVIT INJ. ADULT COMBO WITH VIT K 1 COMBO 10 ML VIAL IV SCH (10:45)
[2021-12-29 18:46] VITALS: BP 147/71; PULSE 87; TEMP 97.7
[2022-01-02] MEDS ORDERED: METHIMAZOLE 5 MG TABLET GT SCH (10:00)
== END 2021-12-29 18:51 | DRG 871 ==
LOC: JER 12:27 → JERBED 22:34 → J4W 12-07 21:16 → J8W 12-16 23:16 → JICU 12-21 03:29 → J4S 12-21 18:26
PROVIDERS: ADMIT Internal Medicine; ATTEND Internal Medicine
PROC: 0DH63UZ Insertion of Feeding Device into Stomach, Percutaneous Approach (ICD-10-PCS; principal; 2021-12-26)
PROC: BD12YZZ Fluoroscopy of Stomach using Other Contrast (ICD-10-PCS; 2021-12-26)
DX: A41.9 Sepsis, unspecified organism (principal); J69.0 Pneumonitis due to inhalation of food and vomit; J96.01 Acute respiratory failure with hypoxia; G92.9 Unspecified toxic encephalopathy; D65 Disseminated intravascular coagulation [defibrination syndrome]; N39.0 Urinary tract infection, site not specified; J98.11 Atelectasis; R04.2 Hemoptysis; I10 Essential (primary) hypertension; G20 Parkinson's disease; D72.829 Elevated white blood cell count, unspecified; R13.10 Dysphagia, unspecified
CPT/HCPCS: 36415; 36600; 49440; 70450-TC; 71045-TC-FY; 71275-TC; 74018-TC-FY; 80048; 80053; 80061; 81003; 82140; 82550; 82728; 82803; 82962; 83605; 83735; 84100; 84443; 84484; 85025; 85027; 85379; 85610; 85730; 86140; 87040; 87070; 87086; 87205; 87899; 93005; 93010; 94640; 97161-GP; 99285-25; C9803; J1100; J1644; Q9967; U0003; U0005